=== PATIENT | male | born 1955 | race Caucasian/White ===

== ENCOUNTER 2020-12-07 13:08 | Outpatient (CLI) | payer MEDICARE, SELFPAY | END 2020-12-07 13:09 | disposition home or self-care (01) | PROVIDERS: Family Provider Nurse Practitioner; PCP Nurse Practitioner; Visit Provider Thoracic Surgery (Cardiothoracic Vascular Surgery) | DX: E11.622 Type 2 diabetes mellitus with other skin ulcer (principal); L97.822 Non-pressure chronic ulcer of other part of left lower leg with fat layer exposed | CPT/HCPCS: 11042 ==

== ENCOUNTER 2020-12-09 10:29 | Outpatient (CLI) | payer MEDICARE, SELFPAY | END 2020-12-09 10:30 | disposition home or self-care (01) | LOC: WOUND 10:30 | PROVIDERS: Family Provider Nurse Practitioner; PCP Nurse Practitioner; Visit Provider Emergency Medicine | DX: I87.2 Venous insufficiency (chronic) (peripheral) (principal); L97.829 Non-pressure chronic ulcer of other part of left lower leg with unspecified severity; E11.622 Type 2 diabetes mellitus with other skin ulcer | CPT/HCPCS: 29581 ==

== ENCOUNTER 2020-12-14 14:57 | Outpatient (CLI) | payer MEDICARE, SELFPAY | END 2020-12-14 14:58 | disposition home or self-care (01) | LOC: WOUND 14:59 | PROVIDERS: Family Provider Nurse Practitioner; PCP Nurse Practitioner; Visit Provider Emergency Medicine | DX: E11.622 Type 2 diabetes mellitus with other skin ulcer (principal); I87.2 Venous insufficiency (chronic) (peripheral); L97.822 Non-pressure chronic ulcer of other part of left lower leg with fat layer exposed | CPT/HCPCS: 11042 ==

== ENCOUNTER 2020-12-21 11:03 | Outpatient (CLI) | payer MEDICARE, SELFPAY ==
--- NOTE | 2020-12-21 11:23 | USCV_ITS ---
Reynold Wenceslao Age: 65 Gender: M : 1955 Exam Date: 12/21/2020 11:37 Ordering Phys: Travis Pedersen MD (Andy) ([email or web address]) Technologist: Edgar Enriquez [place] [facility] [place]: HISTORY: Lower extremity pain. PROCEDURES: Venous duplex imaging was performed in only the left lower extremity. Left duplex Venous Insufficiency study of the Deep and Superficial systems was carried out according to normal protocol with the patient in supine positon for deep system and dependent position for the superficial system. FINDINGS: The veins were found to be easily compressible with spontaneous blood flow. Non pulsatile flow pattern. CONCLUSIONS No evidence of DVT in the above-mentioned identifiable veins. No significant venous reflux on the left side. The distal and below-knee segments of the greater saphenous vein were found to be very superficial. Normal venous dimensions as mentioned above Dr Demetra Cano MD FACC (Electronically Signed) Final Date: 22 December 2020 07:35 S
== END 2020-12-21 11:04 | disposition home or self-care (01) ==
LOC: RAD 11:12
PROVIDERS: PCP Nurse Practitioner; Visit Provider Thoracic Surgery (Cardiothoracic Vascular Surgery)
DX: E11.621 Type 2 diabetes mellitus with foot ulcer (principal); I87.2 Venous insufficiency (chronic) (peripheral); M79.605 Pain in left leg
CPT/HCPCS: 93971

== ENCOUNTER → 2023-04-04 14:32 | Outpatient (BNVA) | payer MEDICARE, SELFPAY | PROVIDERS: Visit Provider Nurse Practitioner Family | DX: M67.911 Unspecified disorder of synovium and tendon, right shoulder (principal) | CPT/HCPCS: 73030 ==

== ENCOUNTER 2023-12-11 23:38 | Emergency (ER) | payer MEDICARE, SELFPAY ==
[2023-12-11 23:51] VITALS: BP 158/63; PULSE 89; RESP 16; TEMP 36.8; O2SAT 95
--- NOTE | 2023-12-11 23:58 | CTR_ITS ---
PROCEDURE INFORMATION: Exam: CT Abdomen And Pelvis Without Contrast Exam date and time: 12/12/2023 12:05 AM Age: 68 years old Clinical indication: Abdominal pain; Generalized; Additional info: Left flank pain TECHNIQUE: Imaging protocol: Computed tomography of the abdomen and pelvis without contrast. Radiation optimization: All CT scans at this facility use at least one of these dose optimization techniques: automated exposure control; mA and/or kV adjustment per patient size (includes targeted exams where dose is matched to clinical indication); or iterative reconstruction. COMPARISON: No relevant prior studies available. RADIATION DOSE METRICS: Total DLP (mGy-cm): 1229.89 FINDINGS: Lungs: Mild basilar bronchial wall thickening. No airspace disease. Heart: Heart size is normal. Liver: Lobulated liver without visible mass. Liver measures 18.1 cm in length. Gallbladder and biliary ducts: There is a tiny gas bubble in a very small gallbladder versus cystic duct remnant. No pneumobilia otherwise. Normal caliber common duct. Pancreas: Normal. No ductal dilation. Spleen: Spleen measures 13.2 cm in length. Adrenal glands: Normal configuration. Kidneys and ureters: No evidence of renal obstruction. No significant renal contour deformity. Stomach and bowel: Moderate fecal debris throughout the colon. Postprandial stomach. Normal caliber small bowel. Appendix: Normal appendix is confirmed. Intraperitoneal space: No free air. No significant fluid collection. Vasculature: Minimal aortoiliac calcific atherosclerosis. Normal caliber abdominal aorta. Normal psoas margins. Lymph nodes: No enlarged lymph nodes. Urinary bladder: Thick-walled urinary bladder without visible calculus. Reproductive: Physiologic appearance for age. Bones/joints: No significant spinal degenerative change. Mild bilateral hip arthropathy. Mild spinal degenerative change with adequate spinal canal. No fracture or destructive bony lesion. Soft tissues: Normal paraspinous soft tissues. Bilateral fat containing direct inguinal hernias. CT/CT kidney stone [id number] IMPRESSION: 1. No acute abnormality identified to explain patient's left flank pain. In particular, there is no evidence of urolithiasis. Normal appearance of psoas and paraspinous muscles. No diverticular disease. 2. There is either a very tiny gallbladder or cystic duct remnant in the gallbladder fossa containing an unexplained gas bubble. Correlate with any history of prior sphincterotomy. New line large volume fecal debris throughout the colon could reflect constipation. No obstructive features.
[2023-12-12 00:11] LABS: Charge for UA Resulting for Rev
[2023-12-12 00:14] LABS: Bilirubin Urine Negative (Negative); Blood Urine Negative (Negative); Glucose Urine UA 3+ (Normal); Ketones Urine Negative (Negative); Leukocyte Esterase Urine Negative (Negative); Nitrate Urine Negative (Negative); Protein Urine Negative (Negative); Specific Gravity, Urine 1.019 (1.005-1.030); Urine Appearance Clear (CLEAR); Urine Color Yellow (Yellow)
[2023-12-12 00:26] VITALS: BP 112/73; PULSE 77; O2SAT 95
--- NOTE | 2023-12-12 00:48 | ED_ITS ---
Documented by User: JO-ANN Henriquez 12/14/23 17:17 HPI - Male Genitourinary 2 General: Chief complaint: Urogenital-Male Stated complaint: severe back /flank pain Time Seen by Provider: 12/11/23 23:58 Source: patient Mode of arrival: ambulatory Limitations: no limitations History of Present Illness: Patient is a 5-year-old male presenting to the emergency department complaining of worsening left flank pain that began a few days ago however got severely worse tonight. States he was seated in a chair when it first happened, and is severely worsened with any movement. He recently had prostatectomy for prostate cancer back in August, has no complications associated with this to report. He is not having any urinary symptoms at this time. States the pain seems to radiate somewhat towards his left lower quadrant. Denies history of kidney stones. He is very hard of hearing and review of systems somewhat hard to obtain. in the room confirms that he does not do much on a daily basis and there has been no significant strenuous activity or exacerbating injury recently that could explain his pain. He denies fevers, chest pain, shortness of breath, or other symptoms. His vitals stable on arrival. Location: left flank Severity: severe Quality: sharp Exacerbating factors: movement Associated symptoms: Deny dysuria, nausea or vomiting Related Data Home Medications Medication Instructions Recorded Confirmed acyclovir 400 mg tablet 400 mg PO DAILY 10/06/21 04/04/23 albuterol sulfate 90 mcg/actuation 1 inh inhalation QID 10/06/21 04/04/23 aerosol inhaler (ProAir HFA) aspirin 325 mg tablet,delayed 325 mg PO DAILY 10/06/21 04/04/23 release atorvastatin 20 mg tablet 20 mg PO DAILY 10/06/21 04/04/23 budesonide-formoterol HFA 80 1 inh inhalation BID 10/06/21 04/04/23 mcg-4.5 mcg/actuation aerosol inhaler cetirizine 10 mg tablet 10 mg PO DAILY PRN 10/06/21 04/04/23 cyclobenzaprine 10 mg tablet 10 mg PO TID 10/06/21 04/04/23 famotidine 40 mg tablet 40 mg PO DAILY 10/06/21 04/04/23 fluticasone propionate 50 1 spray intranasal DAILY 10/06/21 04/04/23 mcg/actuation nasal spray,suspension furosemide 40 mg tablet 40 mg PO DAILY 10/06/21 04/04/23 gabapentin 800 mg tablet 800 mg PO DAILY 10/06/21 04/04/23 glipizide 10 mg tablet 10 mg PO DAILY 10/06/21 04/04/23 metformin 1,000 mg tablet 1,000 mg PO DAILY 10/06/21 04/04/23 metoprolol succinate 50 mg 50 mg PO DAILY 10/06/21 04/04/23 tablet,extended release 24 hr montelukast 10 mg tablet 10 mg PO DAILY 10/06/21 04/04/23 nitroglycerin 0.4 mg sublingual 0.4 mg sublingual Q5M PRN 10/06/21 04/04/23 tablet olopatadine 0.2 % eye drops 1 drp ophthalmic (eye) DAILY 10/06/21 04/04/23 omeprazole 20 mg capsule,delayed 20 mg PO DAILY 10/06/21 04/04/23 release phentermine 15 mg capsule 15 mg PO DAILY 10/06/21 04/04/23 potassium chloride 10 mEq 10 meq PO DAILY 10/06/21 04/04/23 capsule,extended release topiramate 100 mg capsule,extended 100 mg PO DAILY 10/06/21 04/04/23 release 24 hr trazodone 100 mg tablet 100 mg PO DAILY 10/06/21 04/04/23 Previous Rx's Medication Instructions Recorded acetaminophen 300 mg-codeine 30 mg 1 tab PO Q6H PRN pain #20 tabs 10/06/21 tablet nabumetone 750 mg tablet 750 mg PO BID #60 tabs 04/04/23 Allergies Allergy/AdvReac Type Severity Reaction Status Date / Time Penicillins Allergy Unknown Verified 12/11/23 23:56 Review of Systems 2 General: Reports: 10 or more systems reviewed and unremarkable except in HPI and below Const: Denies: fever(s), chills, change in appetite, change in weight or diaphoresis ENMT: Denies: throat pain or hoarseness Card: Denies: chest pain, palpitations or lightheadedness Resp: Denies: dyspnea, productive cough or wheezing GI: Reports: abdominal pain; Denies: nausea, vomiting, diarrhea, constipation, bloating, change in stool character or hematochezia : Reports: flank pain; Denies: difficulty urinating, dysuria, urinary frequency or urinary urgency Musc: Denies: neck pain or back pain Skin/Breast: Denies: rash or new lesions Neuro: Denies: headache(s) or dizziness PFSH ED 2 PFSH: Medical History Right calf pain Bilateral chronic knee pain Osteoarthritis Social History Smoking and tobacco/nicotine status: never used tobacco/nicotine Physical Exam 2 Const: COMMON NORMALS: patient oriented x3, alert and well nourished EXAM LIMITATIONS: physical limitations (Hard of hearing) GENERAL APPEARANCE: c ooperative NUTRITIONAL APPEARANCE: obese morbidly obese O RIENTATION/CONSCIOUSNESS: Yes awake OTHER: Patient severely hard of hearing HENMT: COMMON NORMALS: normocephalic, atraumatic, hearing grossly normal bilaterally, external ears normal, Normal external nose present, Normal nasal mucous membranes and turbinates present and moist oral mucous membranes HEAD & SCALP: normocephalic and atraumatic NOSE: Normal external nose present and Normal nasal mucous membranes and turbinates present EXTERNAL EAR: Yes external ears normal OTHER: Tobacco residue present on patient's mouth Eye: COMMON NORMALS: Equal, round and reactive pupils present, EOMs intact bilaterally and conjunctivae normal CONJUNCTIVA: Yes conjunctivae normal P UPIL: Yes Equal, round and reactive pupils present Neck/C-Spine: COMMON NORMALS: full ROM, supple, no meningeal signs and no JVD Resp: COMMON NORMALS: normal respiratory effort, No retractions, No use of accessory muscles and clear to auscultation bilaterally AUSCULTATION: clear to auscultation bilaterally, no crackles, no rales, no rhonchi and no wheezes Cardio: COMMON NORMALS: no JVD, regular rate, regular rhythm, S1 normal heart sound present, S2 normal heart sound present, No gallops present (Cardio), No clicks present (Cardio), No murmurs present (Cardio), No rub (Cardio) and Peripheral pulses 2+ throughout RATE: regular rate RHYTHM: regular rhythm HEART SOUNDS: S1 normal heart sound present and S2 normal heart sound present PERIPHERAL PULSES: Peripheral pulses 2+ throughout GI: COMMON NORMALS: Normal to inspection, nondistended, normoactive bowel sounds present, Soft to palpation, non-tender, No hepatosplenomegaly present and no masses INSPECTION: Yes central obesity AUSCULTATION: Yes normoactive bowel sounds PALPATION: Yes Soft to palpation, No Guarding due to palpation present (GI), No Rigid due to palpation and Yes No hepatosplenomegaly present RECTAL EXAM: Yes deferred : BLADDER/KIDNEY EXAM: Yes CVA tenderness on the left Back/Pelvis: GENERAL BACK: Yes CVA tenderness Extremity: COMMON NORMALS: normal to inspection and full ROM Neuro: COMMON NORMALS: patient oriented x3, moves all extremities, no focal motor deficits and no sensory deficits noted SENSORIUM/ORIENTATION: Yes alert MENINGEAL SIGNS: Yes no meningeal signs Psych: COMMON NORMALS: mental status grossly normal and cooperative Skin: COMMON NORMALS: no rashes or lesions noted GENERAL SKIN EXAM: no rashes or lesions noted Course 2 Vital Signs: Vital signs: Vital Signs Temperature 98.3 F 12/11/23 23:51 Pulse Rate 74 12/12/23 03:56 Respiratory Rate 16 12/11/23 23:51 Blood Pressure 153/79 12/12/23 03:56 Pulse Oximetry 96 12/12/23 03:56 Oxygen Delivery Me thod Room Air 12/11/23 23:51 MDM - Male Lab Data 12/12/23 01:04 12/12/23 01:04 Radiology Impressions Abdomen/Pelvis CT 12/11/23 23:58 IMPRESSION: 1. No acute abnormality identified to explain patient's left flank pain. In particular, there is no evidence of urolithiasis. Normal appearance of psoas and paraspinous muscles. No diverticular disease. 2. There is either a very tiny gallbladder or cystic duct remnant in the gallbladder fossa containing an unexplained gas bubble. Correlate with any history of prior sphincterotomy. New line large volume fecal debris throughout the colon could reflect constipation. No obstructive features. Laboratory Results WBC 15.71 10^3/uL (3.29-11.43) H 12/12/23 01:04 RBC 4.24 10^6/uL (3.85-5.65) 12/12/23 01:04 Hgb 11.10 g/dL (11.27-16.99) L 12/12/23 01:04 Hct 35.1 % (37-53) L 12/12/23 01:04 MCV 82.8 fl (82-101) 12/12/23 01:04 MCH 26.2 pg (27-33) L 12/12/23 01:04 MCHC 31.6 g/dL (30-55) 12/12/23 01:04 RDW 23.2 % (12.1-15.1) H 12/12/23 01:04 Plt Count 327 10^3/cmm (157-399) 12/12/23 01:04 MPV 9.3 fL (7.4-10.4) 12/12/23 01:04 Neut % (Auto) 80.4 % 12/12/23 01:04 Lymph % (Auto) 10.8 % 12/12/23 01:04 [place] % (Auto) 7.3 % 12/12/23 01:04 Eos % (Auto) 0.3 % 12/12/23 01:04 Baso % (Auto) 0.6 % 12/12/23 01:04 Neut # (Auto) 12.66 10^3/uL (1.8-7.7) H 12/12/23 01:04 Lymph # (Auto) 1.7 10^3/uL (0.8-4.8) 12/12/23 01:04 [place] # (Auto) 1.1 10^3/uL (0.2-0.9) H 12/12/23 01:04 Eos # (Auto) 0.0 10^3/uL (0.0-0.8) 12/12/23 01:04 Baso # (Auto) 0.1 10^3/uL (0.0-0.1) 12/12/23 01:04 Nucleated RBC % (auto) 0.1 % 12/12/23 01:04 Nucleated RBCs # 0.0 /100WBC 12/12/23 01:04 Sodium 138 mmol/L (136-145) 12/12/23 01:04 Potassium 4.2 mmol/L (3.5-5.1) 12/12/23 01:04 Chloride 100 mmol/L (98-107) 12/12/23 01:04 Carbon Dioxide 28 mmol/L (22-29) 12/12/23 01:04 Anion Gap 14.2 (5-19) 12/12/23 01:04 BUN 19 mg/dL (8-23) 12/12/23 01:04 Creatinine 0.6 mg/dL (0.7-1.2) L 12/12/23 01:04 GFR Calculation 133.2 mL/min (90-130) H 12/12/23 01:04 Glucose 84 mg/dL (65-115) 12/12/23 01:04 Calculated Osmolality 287 mOsm/kg (285-295) 12/12/23 01:04 Calcium 9.2 mg/dL (8.5-10.5) 12/12/23 01:04 Total Bilirubin 0.2 mg/dL (0.15-1.2) 12/12/23 01:04 AST 14 U/L (0-40) 12/12/23 01:04 ALT 14 U/L (0-41) 12/12/23 01:04 Alkaline Phosphatase 84 U/L (40-130) 12/12/23 01:04 Total Protein 6.9 g/dL (6.6-8.7) 12/12/23 01:04 Albumin 4.3 g/dL (3.5-5.2) 12/12/23 01:04 Globulin 2.6 g/dL (1.3-4.6) 12/12/23 01:04 Lipase 33 U/L (13-60) 12/12/23 01:04 Urine Color Yellow (Yellow) 12/12/23 00:02 Urine Appearance Clear (CLEAR) 12/12/23 00:02 Urine pH 6.0 (5-7) 12/12/23 00:02 Ur Specific [place] 1.019 (1.005-1.030) 12/12/23 00:02 Urine Protein Negative (Negative) 12/12/23 00:02 Urine Glucose (UA) 3+ (Normal) H 12/12/23 00:02 Urine Ketones Negative (Negative) 12/12/23 00:02 Urine Blood Negative (Negative) 12/12/23 00:02 Urine Nitrate Negative (Negative) 12/12/23 00:02 Urine Bilirubin Negative (Negative) 12/12/23 00:02 Urine Urobilinogen 1.0 mg/dL (Negative) 12/12/23 00:02 Ur Leukocyte Esterase Negative (Negative) 12/12/23 00:02 Amorphous Sediment Not Reportable 12/12/23 00:02 All radiology interpretation(s) finalized by discharge Discharge Plan Discharge Patient Disposition: Home Clinical Impression: Low back pain Qualifiers: Chronicity: acute Back pain laterality: left Sciatica presence: without sciatica Qualified Code(s): M54.50 - Low back pain, unspecified Condition: Stable Prescriptions: No Action nabumetone 750 mg tablet 750 mg PO BID Qty: 60 0RF glipizide 10 mg tablet 10 mg PO DAILY omeprazole 20 mg capsule,delayed release(DR/EC) 20 mg PO DAILY cetirizine 10 mg tablet 10 mg PO DAILY PRN famotidine 40 mg tablet 40 mg PO DAILY olopatadine 0.2 % drops 1 drp ophthalmic (eye) DAILY furosemide 40 mg tablet 40 mg PO DAILY cyclobenzaprine 10 mg tablet 10 mg PO TID topiramate 100 mg capsule,extended release 24hr 100 mg PO DAILY metformin 1,000 mg tablet 1,000 mg PO DAILY atorvastatin 20 mg tablet 20 mg PO DAILY fluticasone propionate 50 mcg/actuation spray,suspension 1 spray intranasal DAILY Rx Instructions: administer into each nostril potassium chloride 10 mEq capsule, extended release 10 meq PO DAILY acyclovir 400 mg tablet 400 mg PO DAILY aspirin 325 mg tablet,delayed release (DR/EC) 325 mg PO DAILY phentermine 15 mg capsule 15 mg PO DAILY Rx Instructions: must administer 2 hours after breakfast gabapentin 800 mg tablet 800 mg PO DAILY nitroglycerin 0.4 mg tablet, sublingual 0.4 mg sublingual Q5M PRN Rx Instructions: do not exceed 3 doses per episode trazodone 100 mg tablet 100 mg PO DAILY montelukast 10 mg tablet 10 mg PO DAILY albuterol sulfate [ProAir HFA] 90 mcg/actuation HFA aerosol inhaler 1 inh inhalation QID metoprolol succinate 50 mg tablet extended release 24 hr 50 mg PO DAILY budesonide-formoterol 80-4.5 mcg/actuation HFA aerosol inhaler 1 inh inhalation BID acetaminophen-codeine 300-30 mg tablet 1 tab PO Q6H PRN (Reason: pain) Qty: 20 0RF Discharge Orders: Discharge ED (Routine); Ordered 12/12/23 Ordered By: Hari Cole Referrals: Brandon Porter MD [Primary Care Provider] - 1 week Patient Instructions: Acute Low Back Pain (ED) Activity Restrictions/Additional Instructions: Thank you for choosing [facility] for your healthcare needs today. Please realize that you were seen in the emergency department and that we are providing you with an emergency medical screening exam and this may not be a complete and all exclusive of all testing and/or medical workup we may need to determine your element or severity of your illness. It is very important that you follow-up as instructed with your primary care provider or specialist for the additional evaluation and to discuss your medical treatment plan. You may return to the emergency department should you have concerns or if your condition changes or worsens in any way. Coding Level of Care Code ED Industrial [employer] for [employer] Documented by User: Hari Cole DO 12/12/23 02:20 HPI - Male Genitourinary 2 General: Chief complaint: Urogenital-Male Stated complaint: severe back /flank pain Time Seen by Provider: 12/11/23 23:58 Related Data Home Medications Medication Instructions Recorded Confirmed acyclovir 400 mg tablet 400 mg PO DAILY 10/06/21 04/04/23 albuterol sulfate 90 mcg/actuation 1 inh inhalation QID 10/06/21 04/04/23 aerosol inhaler (ProAir HFA) aspirin 325 mg tablet,delayed 325 mg PO DAILY 10/06/21 04/04/23 release atorvastatin 20 mg tablet 20 mg PO DAILY 10/06/21 04/04/23 budesonide-formoterol HFA 80 1 inh inhalation BID 10/06/21 04/04/23 mcg-4.5 mcg/actuation aerosol inhaler cetirizine 10 mg tablet 10 mg PO DAILY PRN 10/06/21 04/04/23 cyclobenzaprine 10 mg tablet 10 mg PO TID 10/06/21 04/04/23 famotidine 40 mg tablet 40 mg PO DAILY 10/06/21 04/04/23 fluticasone propionate 50 1 spray intranasal DAILY 10/06/21 04/04/23 mcg/actuation nasal spray,suspension furosemide 40 mg tablet 40 mg PO DAILY 10/06/21 04/04/23 gabapentin 800 mg tablet 800 mg PO DAILY 10/06/21 04/04/23 glipizide 10 mg tablet 10 mg PO DAILY 10/06/21 04/04/23 metformin 1,000 mg tablet 1,000 mg PO DAILY 10/06/21 04/04/23 metoprolol succinate 50 mg 50 mg PO DAILY 10/06/21 04/04/23 tablet,extended release 24 hr montelukast 10 mg tablet 10 mg PO DAILY 10/06/21 04/04/23 nitroglycerin 0.4 mg sublingual 0.4 mg sublingual Q5M PRN 10/06/21 04/04/23 tablet olopatadine 0.2 % eye drops 1 drp ophthalmic (eye) DAILY 10/06/21 04/04/23 omeprazole 20 mg capsule,delayed 20 mg PO DAILY 10/06/21 04/04/23 release phentermine 15 mg capsule 15 mg PO DAILY 10/06/21 04/04/23 potassium chloride 10 mEq 10 meq PO DAILY 10/06/21 04/04/23 capsule,extended release topiramate 100 mg capsule,extended 100 mg PO DAILY 10/06/21 04/04/23 release 24 hr trazodone 100 mg tablet 100 mg PO DAILY 10/06/21 04/04/23 Previous Rx's Medication Instructions Recorded acetaminophen 300 mg-codeine 30 mg 1 tab PO Q6H PRN pain #20 tabs 10/06/21 tablet nabumetone 750 mg tablet 750 mg PO BID #60 tabs 04/04/23 Allergies Allergy/AdvReac Type Severity Reaction Status Date / Time Penicillins Allergy Unknown Verified 12/11/23 23:56 PFSH ED 2 PFSH: Medical History Right calf pain Bilateral chronic knee pain Osteoarthritis Social History Smoking and tobacco/nicotine status: never used tobacco/nicotine Course 2 Vital Signs: Vital signs: Vital Signs Temperature 98.3 F 12/11/23 23:51 Pulse Rate 74 12/12/23 03:56 Respiratory Rate 16 12/11/23 23:51 Blood Pressure 153/79 12/12/23 03:56 Pulse Oximetry 96 12/12/23 03:56 Oxygen Delivery Me thod Room Air 12/11/23 23:51 MDM - Male Medical Decision Making Patient care turned over to myself at shift change, lab work reviewed as well as abdominal pelvic CT, these results was discussed with the patient. Will feel is more musculoskeletal in nature. Patient be discharged home. Medical Records I reviewed the patient's medical records. Lab Data I reviewed the patient's lab results. 12/12/23 01:04 12/12/23 01:04 Radiology Impressions Abdomen/Pelvis CT 12/11/23 23:58 IMPRESSION: 1. No acute abnormality identified to explain patient's left flank pain. In particular, there is no evidence of urolithiasis. Normal appearance of psoas and paraspinous muscles. No diverticular disease. 2. There is either a very tiny gallbladder or cystic duct remnant in the gallbladder fossa containing an unexplained gas bubble. Correlate with any history of prior sphincterotomy. New line large volume fecal debris throughout the colon could reflect constipation. No obstructive features. Laboratory Results WBC 15.71 10^3/uL (3.29-11.43) H 12/12/23 01:04 RBC 4.24 10^6/uL (3.85-5.65) 12/12/23 01:04 Hgb 11.10 g/dL (11.27-16.99) L 12/12/23 01:04 Hct 35.1 % (37-53) L 12/12/23 01:04 MCV 82.8 fl (82-101) 12/12/23 01:04 MCH 26.2 pg (27-33) L 12/12/23 01:04 MCHC 31.6 g/dL (30-55) 12/12/23 01:04 RDW 23.2 % (12.1-15.1) H 12/12/23 01:04 Plt Count 327 10^3/cmm (157-399) 12/12/23 01:04 MPV 9.3 fL (7.4-10.4) 12/12/23 01:04 Neut % (Auto) 80.4 % 12/12/23 01:04 Lymph % (Auto) 10.8 % 12/12/23 01:04 [place] % (Auto) 7.3 % 12/12/23 01:04 Eos % (Auto) 0.3 % 12/12/23 01:04 Baso % (Auto) 0.6 % 12/12/23 01:04 Neut # (Auto) 12.66 10^3/uL (1.8-7.7) H 12/12/23 01:04 Lymph # (Auto) 1.7 10^3/uL (0.8-4.8) 12/12/23 01:04 [place] # (Auto) 1.1 10^3/uL (0.2-0.9) H 12/12/23 01:04 Eos # (Auto) 0.0 10^3/uL (0.0-0.8) 12/12/23 01:04 Baso # (Auto) 0.1 10^3/uL (0.0-0.1) 12/12/23 01:04 Nucleated RBC % (auto) 0.1 % 12/12/23 01:04 Nucleated RBCs # 0.0 /100WBC 12/12/23 01:04 Sodium 138 mmol/L (136-145) 12/12/23 01:04 Potassium 4.2 mmol/L (3.5-5.1) 12/12/23 01:04 Chloride 100 mmol/L (98-107) 12/12/23 01:04 Carbon Dioxide 28 mmol/L (22-29) 12/12/23 01:04 Anion Gap 14.2 (5-19) 12/12/23 01:04 BUN 19 mg/dL (8-23) 12/12/23 01:04 Creatinine 0.6 mg/dL (0.7-1.2) L 12/12/23 01:04 GFR Calculation 133.2 mL/min (90-130) H 12/12/23 01:04 Glucose 84 mg/dL (65-115) 12/12/23 01:04 Calculated Osmolality 287 mOsm/kg (285-295) 12/12/23 01:04 Calcium 9.2 mg/dL (8.5-10.5) 12/12/23 01:04 Total Bilirubin 0.2 mg/dL (0.15-1.2) 12/12/23 01:04 AST 14 U/L (0-40) 12/12/23 01:04 ALT 14 U/L (0-41) 12/12/23 01:04 Alkaline Phosphatase 84 U/L (40-130) 12/12/23 01:04 Total Protein 6.9 g/dL (6.6-8.7) 12/12/23 01:04 Albumin 4.3 g/dL (3.5-5.2) 12/12/23 01:04 Globulin 2.6 g/dL (1.3-4.6) 12/12/23 01:04 Lipase 33 U/L (13-60) 12/12/23 01:04 Urine Color Yellow (Yellow) 12/12/23 00:02 Urine Appearance Clear (CLEAR) 12/12/23 00:02 Urine pH 6.0 (5-7) 12/12/23 00:02 Ur Specific [place] 1.019 (1.005-1.030) 12/12/23 00:02 Urine Protein Negative (Negative) 12/12/23 00:02 Urine Glucose (UA) 3+ (Normal) H 12/12/23 00:02 Urine Ketones Negative (Negative) 12/12/23 00:02 Urine Blood Negative (Negative) 12/12/23 00:02 Urine Nitrate Negative (Negative) 12/12/23 00:02 Urine Bilirubin Negative (Negative) 12/12/23 00:02 Urine Urobilinogen 1.0 mg/dL (Negative) 12/12/23 00:02 Ur Leukocyte Esterase Negative (Negative) 12/12/23 00:02 Amorphous Sediment Not Reportable 12/12/23 00:02 Discharge Plan Discharge Patient Disposition: Home Clinical Impression: Low back pain Qualifiers: Chronicity: acute Back pain laterality: left Sciatica presence: without sciatica Qualified Code(s): M54.50 - Low back pain, unspecified Condition: Stable Prescriptions: No Action nabumetone 750 mg tablet 750 mg PO BID Qty: 60 0RF glipizide 10 mg tablet 10 mg PO DAILY omeprazole 20 mg capsule,delayed release(DR/EC) 20 mg PO DAILY cetirizine 10 mg tablet 10 mg PO DAILY PRN famotidine 40 mg tablet 40 mg PO DAILY olopatadine 0.2 % drops 1 drp ophthalmic (eye) DAILY furosemide 40 mg tablet 40 mg PO DAILY cyclobenzaprine 10 mg tablet 10 mg PO TID topiramate 100 mg capsule,extended release 24hr 100 mg PO DAILY metformin 1,000 mg tablet 1,000 mg PO DAILY atorvastatin 20 mg tablet 20 mg PO DAILY fluticasone propionate 50 mcg/actuation spray,suspension 1 spray intranasal DAILY Rx Instructions: administer into each nostril potassium chloride 10 mEq capsule, extended release 10 meq PO DAILY acyclovir 400 mg tablet 400 mg PO DAILY aspirin 325 mg tablet,delayed release (DR/EC) 325 mg PO DAILY phentermine 15 mg capsule 15 mg PO DAILY Rx Instructions: must administer 2 hours after breakfast gabapentin 800 mg tablet 800 mg PO DAILY nitroglycerin 0.4 mg tablet, sublingual 0.4 mg sublingual Q5M PRN Rx Instructions: do not exceed 3 doses per episode trazodone 100 mg tablet 100 mg PO DAILY montelukast 10 mg tablet 10 mg PO DAILY albuterol sulfate [ProAir HFA] 90 mcg/actuation HFA aerosol inhaler 1 inh inhalation QID metoprolol succinate 50 mg tablet extended release 24 hr 50 mg PO DAILY budesonide-formoterol 80-4.5 mcg/actuation HFA aerosol inhaler 1 inh inhalation BID acetaminophen-codeine 300-30 mg tablet 1 tab PO Q6H PRN (Reason: pain) Qty: 20 0RF Discharge Orders: Discharge ED (Routine); Ordered 12/12/23 Ordered By: Hari Cole Referrals: Brandon Porter MD [Primary Care Provider] - 1 week Patient Instructions: Acute Low Back Pain (ED) Activity Restrictions/Additional Instructions: Thank you for choosing [facility] for your healthcare needs today. Please realize that you were seen in the emergency department and that we are providing you with an emergency medical screening exam and this may not be a complete and all exclusive of all testing and/or medical workup we may need to determine your element or severity of your illness. It is very important that you follow-up as instructed with your primary care provider or specialist for the additional evaluation and to discuss your medical treatment plan. You may return to the emergency department should you have concerns or if your condition changes or worsens in any way. 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
[2023-12-12 01:26] VITALS: BP 182/91; PULSE 74; O2SAT 97
[2023-12-12 01:28] LABS: Basophils # 0.1 10^3/uL (0.0-0.1); Basophils % 0.6 %; Eosinophils % 0.3 %; Hematocrit 35.1 % (37-53); Lymphocytes # 1.7 10^3/uL (0.8-4.8); Lymphocytes % 10.8 %; Mean Corpuscular HGB Conc 31.6 g/dL (30-55); Mean Corpuscular Hemoglobin 26.2 pg (27-33); Mean Corpuscular Volume 82.8 fl (82-101); Mean Platelet Volume 9.3 fL (7.4-10.4); Monocytes # 1.1 10^3/uL (0.2-0.9); Monocytes % 7.3 %; Neutrophils # 12.66 10^3/uL (1.8-7.7); Neutrophils % 80.4 %; Nucleated Red Blood Cells % 0.1 %; Platelet Count 327 10^3/cmm (157-399); Red Blood Count 4.24 10^6/uL (3.85-5.65); Red Cell Distribution Width 23.2 % (12.1-15.1); White Blood Count 15.71 10^3/uL (3.29-11.43)
[2023-12-12] MEDS: sodium chloride 0.9% 1,000 ML 999 ML IV (01:31)
[2023-12-12] MEDS: ondansetron 2 mg/ML SDV 2 mL 4 MG IVP (01:32)
[2023-12-12] MEDS: ketorolac 60 mg/2 mL INJ 30 MG IVP (01:32)
[2023-12-12 01:56] LABS: Alanine Aminotransferase 14 U/L (0-41); Albumin Level 4.3 g/dL (3.5-5.2); Alkaline Phosphatase 84 U/L (40-130); Anion Gap 14.2 (5-19); Aspartate Amino Transferase 14 U/L (0-40); Blood Urea Nitrogen 19 mg/dL (8-23); Calcium 9.2 mg/dL (8.5-10.5); Carbon Dioxide 28 mmol/L (22-29); Chloride 100 mmol/L (98-107); Globulin 2.6 g/dL (1.3-4.6); Glomerular Filtration Rate 133.2 mL/min (90-130); Glucose 84 mg/dL (65-115); Lipase 33 U/L (13-60); Osmolality Calculated 287 mOsm/kg (285-295); Potassium 4.2 mmol/L (3.5-5.1); Sodium 138 mmol/L (136-145); Total Bilirubin 0.2 mg/dL (0.15-1.2); Total Protein 6.9 g/dL (6.6-8.7)
[2023-12-12 02:26] VITALS: BP 183/106; PULSE 72; O2SAT 97
[2023-12-12 03:00] VITALS: BP 159/86; PULSE 71; O2SAT 96
[2023-12-12 03:56] VITALS: BP 153/79; PULSE 74; O2SAT 96
== END 2023-12-12 03:32 | disposition home or self-care (01) ==
PROVIDERS: Emergency Provider Physician Assistant; PCP Internal Medicine
DX: M54.50 Low back pain, unspecified (principal); Z79.82 Long term (current) use of aspirin; Z79.84 Long term (current) use of oral hypoglycemic drugs
CPT/HCPCS: 74176; 80053; 81003; 81015; 83690; 85025; 96361; 96374; 96375; 99285; J1885; J2405; J7030

== ENCOUNTER → 2024-01-21 17:31 | Outpatient (BNVA) | payer MEDICARE, SELFPAY | PROVIDERS: PCP Internal Medicine; Visit Provider Nurse Practitioner Family | DX: Z20.828 Contact with and (suspected) exposure to other viral communicable diseases (principal) | CPT/HCPCS: 87400 ==